=== PATIENT | female | born 2000 | race Caucasian/White ===

== ENCOUNTER 2024-09-28 01:16 | Emergency (ER) | payer OTHER, SELFPAY ==
--- NOTE | ~2024-09-28 | XR_ITS ---
CLINICAL HISTORY: t4-t5 pain s p fall 3 views thoracic spine Comparison: None Findings: Normal vertebral body alignment. No acute fractures or dislocation. No significant degenerative change. IMPRESSION: No acute findings. This document has been electronically signed by: Wesley Garza MD on 09/28/2024 04:55:15
[2024-09-28 01:26] VITALS: BP 100/68; PULSE 71; RESP 14; TEMP 36.2; O2SAT 100; BMI 22.1
--- OUTSIDE RECORDS SUMMARY | 2024-09-28 02:49 | XMS_ITS | Encounter Summary ---
Author Organization [facility] Address [phone] [facility] [place] [address] Care Team Providers Care Child Day Care Provider Name Role Phone Shantelle Baca MD Primary Care Provider [phone] Ale Lackey Unavailable [email or web address] Encounter Details Date Type Department Care Team (Late st Contact Info) Description 09/28/2024 12:33 AM EST - 09/28/2024 12:49 AM EST Emergency [facility] [address] [place] [address] Discharge Disposition: Left Without Being Seen Social History Tobacco Use Types Packs/Day Years Used Date Smoking Tobacco: Never Passive Smoke Exposure: Never Smokeless Tobacco: Never Alcohol Use Standard Drinks/Week Comments Never 0 (1 standard drink = 0.6 oz pur e alcohol) Education Answer Date Recorded Are you interested in more education? Not on vern e 12/11/2022 Are you concerned about learning? Not on file 12/11/2022 No 12/11/2022 No 12/11/2022 Digital Access Answer Date Recorded No 01/07/2023 No 01/07/2023 Reliable internet access at home? Not on file 01/07/2023 Device with a working camera? Not on file Intimate Partner Violence Answer Date R ecorded Denied Basic Needs Not on file 07/31/2024 In the past 12 months have y ou been in a relationship with a person who hurts, threatens, or tries to control you? No 07/31/2024 Worried food would run out Not on file 07/31 In the past 12 months have y ou been in a relationship with a person who hurts, threatens, or tries to control you? No 07/31/2024 Sex and Gender Information Value Date Recorded Sex Assigned at Female 01/20/2021 3:41 PM EDT Gender Identity Female 01/20/2021 3:41 PM EDT Sexual Orientation Straight 01/20/2021 3: 41 PM EDT documented as of this encounter Medications at Time of Discharge Medication Sig Dispensed Refills Start Date End Date EPIDUO FORTE 0.3-2.5 % GlwP as needed. 12/29/2020 FLUoxetine (PROZAC) 10 MG capsuleIndications:Curr ent moderate episode of major depressive disorder without prior episode Take 1 capsule daily for one week, then increase to 2 caps daily 60 capsule 5 08/01/2024 loratadine (CLARITIN) 10 mg tablet Take 10 mg by mouth as needed. documented as of this encounter Plan of Treatment Upcoming Encounters Date Type Department Care Team (Late st Contact Info) Description 08/22/2025 9:00 AM EST Appointment [address] [place] [address] [place] [address] Shantelle Baca MD [address] [address] [email or web address] documented as of this encounter Goals Goal Patient Goal Type Associated Problems Recent Progress Patient-Stated? Author KL-Zzpyfojj-Qoc ed Cognitive Behavioral Therapy (iCBT) Care Management No Stephanie Davis, SHANNON Note: Pt will complete module 6 of iCBT. documented as of this encounter Visit Diagnoses Not on filedocumented in this encounter Additional Health Concerns Assessment Noted Time PHQ-9 Depression Total Score: 14 025 12:31 PM EST PHQ-2 Depression Total Score: 4 09/19/19 25 12:31 PM EST documented as of this encounter Care Teams Child Day Care Provider Relationship Specialty Start Date End Date Shantelle Baca MD 6 [facility], [facility] [address] [place] [address] [email or web address] PCP - General Internal Medicine 01/20/21 [email or web address] Collaborative Care Automatic Folder Seamer 09/19/24 documented as of this encounter Additional Source Comments The information contained in this document represents components of the legal health record. It is not the complete legal health record.[facility]
--- OUTSIDE RECORDS SUMMARY | 2024-09-28 02:49 | XMS_ITS | Encounter Summary ---
Author Organization [facility] Address [phone] [place] [address] Care Team Providers Care Sulfide Head Operator Name Role Phone Shantelle Baca MD Primary Care Provider Ale Lackey Unavailable [email or web address] Reason for Visit * Reason Onset Date Comments Collaborative Care September 2024 09/19/2024 Encounter Details Date Type Department Care Team (Late st Contact Info) Description 09/19/2024 Patient Outreach [facility] Physicians - Primary Care - [address] [phone] Shantelle Baca MD [address] [place] [address], [facility] [address] [place] [address] [email or web address] Collaborative Care September 2024 Social History Tobacco Use Types Packs/Day Years [...] PM EDT documented as of this encounter Progress Notes * Ale Lackey - 09/19/2024 12:27 PM EST September 19, 2024 Assessment(s) APARNA-7: 14 PHQ-9: 14 C-SSRS Screener Since Last Visit: Moderate 09/19/2024 0.38 Minutes -- Patient Contact 09/19/2024 48.57 Minutes -- Patient Contact 09/19/2024 2.00 Minutes -- Clinical Case Preparation 09/19/2024 10.00 Minutes -- Patient Related Correspondence 09/19/2024 12.00 Minutes -- Community Resources (Research and/or Contact) 09/19/2024 10.00 Minutes -- Registry Management Primary Diagnosis: F42.2 - Mixed obsessional thoughts and acts Patient was contacted for continued behavioral health services to treat presenting diagnosis. Patient scores indicate moderate anxiety, moderate depression, and a moderate C- SSRS. Patient identifies recent suicidal ideation, reporting thoughts that they would be better off , and would choose to overdose, although she shared that she currently doesn't have the desire to harm herself. Collaborative Medical Director/Head Team Physician provided Suicide Risk Assessment using the C-SSRS and provided intervention with iMhir Prado safety plan. Patient was provided with emergency numbers/resources for immediate support if needed. Patient's safety plan was completed, uploaded, and emailed to patient. Patient identifies protective factors of her friends and dreams for her future. Patient identifies risk facto rs: isolation and low motivation. Collaborative Medical Director/Head Team Physician will follow-up with patient on 09/25/24. Patient set a goal of reviewing introductory during last contact. Patient did not report completingthis goal. Patient reports the following symptoms since last contact: anhedonia, low motivation, and suicidal ideation. Medication Management: Collaborative Medical Director/Head Team Physician and patient reviewed - no changes reported. Intervention: Collaborative Medical Director/Head Team Physician utilized Compassion-Focused Therapy, empathy, and activelistening to assist patient in developing self-kindness and mindfulness to reduce stress, anxiety, and depression symptoms with a goal of reducing symptoms by 50% or more in 8-12 weeks. Plan: Patient will impact depression and anxiety by reviewing coping strategies, goal adherence material, and long-term care resources sent by Collaborative Medical Director/Head Team Physician until next scheduled contact on 09/25/24 with Collaborative Medical Director/Head Team Physician. Goal: How was your progress towards your goal since our last meeting? Poor (Fair) Good Excellent Clinician met with the patient via telepractice. Patient is aware that the contact is conducted viainteractive audio and consents to treatment in this way. Patient's identity was confirmed. Clinician verified the patient's physical location during the contact and local emergency contacts. Patient has been included in the caseload review activities and consulted on as needed. Ale Lackey [facility] Behavioral Healthcare Web Development Instructor I * Michelle Bansal MD, MPH - 09/19/2024 12:27 PM EST Psychiatric Consultation - [facility] Health Information Reviewed: medical records, collaborative managed care director notes and systematic case review with collaborative managed care director. Reason for Consultation: depression and anxiety Clinical concerns discussed: second-guessing herself when speaking, unable to speak freely, high anxiety, difficulty completing her thoughts; at risk; would overdose on pills; dreams of future and her friends are protective factor; isolation, low motivation to engage in activities, social anxiety, nervous around people 02/03/2023 3:29 PM 03/16/2023 8:51 AM 07/31/2024 10:10 PM 07/31/2024 10:14 PM 09/05/2024 11:55 AM 09/05/2024 11:56 AM 09/19/2024 12:31 PM Psychosocial Screenings Audit-C 0 2 PHQ-2 0 0 5 3 4 PHQ-9 15 15 14 APARNA-2 2 4 4 5 APARNA-7 10 14 14 Meds: Current Outpatient Medications on File Prior to Visit Medication Sig Dispense Refill Last Dispense EPIDUO FORTE 0.3-2.5 % GlwP as needed. Unknown (patient-reported) FLUoxetine (PROZAC) 10 MG capsule Take 1 capsule daily for one week, then increase to 2 caps daily 60 capsule 5 Unknown (outside pharmacy) loratadine (CLARITIN) 10 mg tablet Take 10 mg by mouth as needed. Unknown (patient-reported) No current facility-administered medications on file prior to visit. Diagnosis: MDD, APARNA Recommendations: Would continue to titrate fluoxetine. Can increase in 10 mg increments monthly (slow titration due to its long half-life) based on response/tolerability to a maximum dose of 80 mg daily. For depression, efficacy plateaus at around 20-30 mg of fluoxetine, but higher doses may be needed for full control of anxiety symptoms. The above treatment considerations and suggestions are based on consultations with the patient's collaborative care treatment team and a review of information available in the patient's medical record. I have not personally examined the patient. Referring provider was made aware of clinical recommendations. All recommendations should be implemented with consideration of the patient???s relevant prior history and current clinical status. Michelle Bansal MD, MPH * Ale Lackey - 09/19/2024 12:27 PM EST September 24, 2024 09/24/2024 14.00 Minutes -- Collaborative PC Review Primary Diagnosis: F42.2 - Mixed obsessional thoughts and acts Patient's clinical history, symptoms, and medications reviewed for psychiatric consultation with Michelle Bansal MD. Recommendations added to electronic health record. Ale Lackey LMSW Behavioral Healthcare Web Development Instructor I 09/24/2024 10.00 Minutes -- Clinical Case Preparation 09/24/2024 0.30 Minutes -- Registry Management Primary Diagnosis: F42.2 - Mixed obsessional thoughts and acts The Collaborative Medical Director/Head Team Physician prepared for the Psychiatric Ribbon Hanking Machine Operator Review and met with the psychiatric erp implementation consultant regarding the patient. Ale Lackey LMSW Behavioral [facility] Web Development Instructor I 09/24/2024 1.00 Minutes -- Clinical Case Preparation 09/24/2024 8.00 Minutes -- Patient Related Correspondence 09/24/2024 0.30 Minutes -- Registry Management Primary Diagnosis: F42.2 - Mixed obsessional thoughts and acts As advised by the Psychiatric Ribbon Hanking Machine Operator, the Collaborative Medical Director/Head Team Physician wrote Primary Care Physician regarding the patient's treatment plan moving forward. Ale Lackey [facility] Behavioral Healthcare Web Development Instructor I * Ale Lackey - 09/19/2024 12:27 PM EST September 25, 2024 Assessment(s) C-SSRS Screener Since Last Visit: Negative 09/25/2024 4.00 Minutes -- Clinical Case Preparation 09/25/2024 4.00 Minutes -- PCP Communication 09/25/2024 1.00 Minutes -- Registry Management Primary Diagnosis: F42.2 - Mixed obsessional thoughts and acts Collaborative Medical Director/Head Team Physician replied to the Primary Care Physician's request to assist the patient in finding a Psychopharmacologist. Ale Lackey [facility] Behavioral Healthcare Web Development Instructor I 09/25/2024 0.78 Minutes -- Patient Contact 09/25/2024 2.00 Minutes -- Clinical Case Preparation 09/25/2024 25.02 Minutes -- Video Visit 09/25/2024 5.00 Minutes -- Registry Management Primary Diagnosis: F42.2 - Mixed obsessional thoughts and acts Patient was contacted for continued behavioral health services to treat presenting diagnosis. Patient scores indicate moderate anxiety, moderate depression, and a Negative C- SSRS score. Patientdoes not report suicidal ideation and there is no indication of harm to self or others at this time. Patient set a goal of reviewing coping strategies, goal adherence material, and long-term care resources during last contact. Patient reported completing this goal. Patient reports the following symptoms since last contact: no negative symptoms reported. Medication Management: Collaborative Medical Director/Head Team Physician and patient reviewed - no changes reported. Intervention: Collaborative Medical Director/Head Team Physician utilized Compassion-Focused Therapy, empathy, and activelistening to assist patient in developing self-kindness and mindfulness to reduce stress, anxiety, and depression symptoms with a goal of reducing symptoms by 50% or more in 8-12 weeks. Patient is open to reviewing long-term care resources sent by Collaborative Medical Director/Head Team Physician. Plan: Patient will impact depression and anxiety by reviewing long-term care resources sent by Collaborative Medical Director/Head Team Physician until next scheduled contact on 10/10/24 with Collaborative Medical Director/Head Team Physician. Goal: How was your progress towards your goal since our last meeting? Poor Fair Good (Excellent) Clinician met with the patient via telepractice. Patient is aware that the contact is conducted viainteractive audio and consents to treatment in this way. Patient's identity was confirmed. Clinician verified the patient's physical location during the contact and local emergency contacts. Patient has been included in the caseload review activities and consulted on as needed. Ale Lackey [facility] Behavioral Healthcare Web Development Instructor I documented in this encounter Plan of Treatment Upcoming Encounters Date Type Department Care Team (Late st Contact Info) Description 08/22/2025 9:00 AM EST Appointment [address] [address] Shantelle Baca MD [address] [place] [address] [email or web address] documented as of this encounter Goals Goal Patient Goal Type Associated Problems Recent Progress Patient-Stated? Author QL-Ooaisxti-Vlt ed Cognitive Behavioral Therapy (iCBT) Care Management No Stephanie Davis SOIL ANALYST Note: Pt will complete module 6 of iCBT. documented as of this encounter Visit Diagnoses Not on filedocumented in this encounter Additional Health Concerns Assessment Noted Time PHQ-9 Depression Total Score: 14 025 12:31 PM EST PHQ-2 Depression Total Score: 4 09/19/19 25 12:31 PM EST documented as of this encounter Care Teams Sulfide Head Operator Relationship Specialty Start Date End Date Shantelle Baca MD 6 [facility] [place], [address] [address] [email or web address] PCP - General Internal Medicine 01/20/21 Ale Collaborative Care Weed Sprayer 09/19/24 documented as of this encounter Additional Source Comments The information contained in this document represents components of the legal health record. It is not the complete legal health record.[facility]
--- OUTSIDE RECORDS SUMMARY | 2024-09-28 02:49 | XMS_ITS | Clinical Summary ---
Author Organization [facility] Address [address] [place] [address] Phone Care Team Providers Care Machine Heddle Cleaner Name Role Phone Mary Miller MD Primary Care Prov ider Allergies Active Allergy Reactions Criticality Noted Date Comments Cat Dander 12/23/2013 Dog Epithelium 12/23/2013 Medications No known medications Active Problems Problem Noted Date Diagnosed Date Anxiety 12/12/2016 Expressive language delay 12/12/2016 Iron deficiency anemia 12/12/2016 Immunizations Immunization Administration Dates Next Due DTaP 5 12/19/2005, 2,07/01/2001,04/18,02/28/2001 H1N1 05/28/2009 HPV Vaccine 9 Valent 08/02/2019,02/20/2019 Hep A, ped/adol 02/12/2014,02/20/2006 Hep B, ped/adol 10/30/2001,01/24/2001,2000 Hib (PRP-T) 03/18/2002, 1,04/18/2001,02/28 IPV 12/19/2005, 1,04/18/2001,02/28 Influenza, injectable, MDCK, preservative free, quadrivalent 08/26/2017 Influenza, injectable, quadr ivalent, preservative free 08/24/2012,07/13/2011 Influenza, injectable, trivalent 010,04/23/2009,06/05/2008,06/07,06/28/2006,06/02/2005,06/10/2004 MMR 12/19/2005,03/18/2002 Meningococcal B Bexsero 03/25/2019,02/20/2019 Meningococcal Conj (Menactra) MCV4P 02/12/2018,0 02/11/2013 Pneumococcal Conjugate 06/25/2002,2000,04/18/2001,02/28 Tdap 02/11/2013 Varicella 02/03/2010,12/17/2001 Family History Medical History Relation Name Comments Congenital heart disease Brother Kodak Hyp oplastic Left with Double-Outlet Right Ventricle Relation Name Status Comments Brother Kodak Alive Social History Tobacco Use Types Packs/Day Years Used Date Smoking Tobacco: Never Smokeless Tobacco: Never Tobacco Cessation:Counseling Given: Yes Comments:never smoker Alcohol Use Standard Drinks/Week Comments No 0 (1 standard drink = 0.6 oz pur e alcohol) Hunger/Food Answer Date Recorded No 05/09/2020 Stable Housing Answer Date Recorded No 05/09/2020 Transportation Concerns Answer Date Rec orded No 05/09/2020 Hazards in Home Answer Date Recorded No 06/27/2020 Financing Utilities Answer Date Recorde d No 06/27/2020 Safety at Home Answer Date Recorded No 06/27/2020 Outside Support Answer Date Recorded No 06/27/2020 Understanding Health Concerns Answer Da te Recorded No 06/27/2020 Financing Health Concerns Answer Date R ecorded No 06/27/2020 Missing School or Work Answer Date Rishabh rded No 06/27/2020 Comments Unknown Sex and Gender Information Value Date Recorded Sex Assigned at Not on file Legal Sex Female 10:17 PM EST Gender Identity Not on file Sexual Orientation Not on file Last Filed Vital Signs Vital Sign Reading Time Taken Comments Blood Pressure 116/64 02/20/2019 3:54 PM EDT Pulse - - Temperature 37 ??C (98.6 ??F) 01/09/2019 1:25 PM EDT Respiratory Rate - - Oxygen Saturation 98% 04/30/2012 12:00 AM EDT Inhaled Oxygen Concentration - - Weight 64.4 kg (142 lb) 02/20/2019 3:54 PM EDT Height 158.8 cm (5' 2.5 ) 02/20/2019 3:54 PM EDT Body Mass Index 25.56 02/20/2019 3:54 PM EDT Plan of Treatment Health Maintenance Due Date Last Done Comments DTaP,Tdap,and Td Vaccines (7 - Td or Tdap) 02/11/2023 02/11/2013, 12/19/2005, 06/25/2002, Additional history exists Influenza Vaccines (#1) 2024 08/26/19 18, 08/24/2012, 07/13/2011, Additional history exists COVID-19 Vaccine (2023-2 5 season) 2024 01/20/2021, 12/23/2020 Hepatitis B Vaccines Completed 10/30/2001, 01/24/2001, 2000 HIB Vaccines Completed 03/18/2002, 06/14, 04/18/2001, Additional history exists Pneumococcal Vaccine Completed 06/25/2002, 07/01/2001, 04/18/2001, Additional history exists IPV Vaccines Completed 12/19/2005, 06/14, 04/18/2001, Additional history exists MMR Vaccines Completed 12/19/2005, 03/18/2002 Varicella Vaccines Completed 02/03/2010, 12/17/2001 Hepatitis A Vaccines Completed 02/12/2014, 02/21/20 06 Meningococcal Vaccine Completed 02/12/2018, 013 Men B Vaccine Completed 03/25/2019, 02/20/2019 HPV Vaccines Completed 02/08/2021, 07/15, 02/20/[address] [place], [place] [address] Care Teams Machine Heddle Cleaner Relationship Specialty Start Date End Date Mary Miller MD [facility] [place] [address] [facility] - General 10/04/16
--- OUTSIDE RECORDS SUMMARY | 2024-09-28 02:50 | XMS_ITS | Encounter Summary ---
Author Organization [facility] Address [address] [place] [address] Phone Care Team Providers Care Personal Care Aide Name Role Phone Mary Miller MD Primary Care Prov ider Encounter Details Date Type Department Care Team (Late st Contact Info) Description 03/22/2017 Conversion Encounter [facility] [address] [place] [address] Mary Miller MD [address] [place] [address] Social History Tobacco Use Types Packs/Day Years Used Date Smoking Tobacco: Never Comments:never smoker Comments Unknown Sex and Gender Information Value Date Recorded Sex Assigned at Not on file Legal Sex Female 10:17 PM EST Gender Identity Not on file Sexual Orientation Not on file documented as of this encounter Plan of Treatment Not on file documented as of this encounter Visit Diagnoses Not on filedocumented in this encounter Care Teams Personal Care Aide Relationship Specialty Start Date End Date Mary Miller MD [address] [place] [address] PCP - General 10/04/16 documented as of this encounter
--- OUTSIDE RECORDS SUMMARY | 2024-09-28 02:50 | XMS_ITS | Encounter Summary ---
Author Organization [facility] Address [phone] [facility] [place] [address] Care Team Providers Care Spar Machine Operator Helper Name Role Phone Shantelle Baca MD Primary Care Provider [phone] Ale Lackey Unavailable [email or web address] Encounter Details Date Type Department Care Team (Late st Contact Info) Description 08/01/2024 Procedure Pass [address] [address] Social History Tobacco Use Types Packs/Day Years [...] PM EDT documented as of this encounter Plan of Treatment Upcoming Encounters Date Type Department Care Team (Late st Contact Info) Description 08/22/2025 9:00 AM EST Appointment [facility] 6 [facility] [address] [place] [address] Shantelle Baca MD [address] [address] [email or web address] documented as of this encounter Goals Goal Patient Goal Type Associated Problems Recent Progress Patient-Stated? Author VY-Omtdquyu-Mel ed Cognitive Behavioral Therapy (iCBT) Care Management No Stephanie Davis, SHANNON Note: Pt will complete module 6 of iCBT. documented as of this encounter Visit Diagnoses Not on filedocumented in this encounter Additional Health Concerns Assessment Noted Time PHQ-9 Depression Total Score: 15 024 10:14 PM EST PHQ-2 Depression Total Score: 5 07/31/20 24 10:14 PM EST documented as of this encounter Care Teams Spar Machine Operator Helper Relationship Specialty Start Date End Date Shantelle Baca MD [address] [facility], [address] [address] [email or web address] PCP - General Internal Medicine 01/20/21 Ale Collaborative Care BH Media Relations Specialist 09/19/24 documented as of this encounter Additional Source Comments The information contained in this document represents components of the legal health record. It is not the complete legal health record.[facility]
--- OUTSIDE RECORDS SUMMARY | 2024-09-28 02:50 | XMS_ITS | Encounter Summary ---
Author Organization [facility] Address [phone] [place] [id number] Care Team Providers Care Crabbing Machine Operator Name Role Phone Shantelle Baca MD Primary Care Provider Reason for Visit * Reason Onset Date Comments Collaborative Care August 2024 09/05/2024 Encounter Details Date Type Department Care Team (Late st Contact Info) Description 09/05/2024 Patient Outreach [facility] - Primary Care - [address] [phone] Shantelle Baca MD 6 [facility], [facility] [address] [place], [place] [id number] [email or web address] Collaborative Care August 2024 Social History Tobacco Use Types Packs/Day [...] encounter Progress Notes * Ale Lackey - 09/05/2024 11:55 AM EST September 05, 2024 Assessment(s) APARNA-7: 14 PHQ-9: 15 C-SSRS Screener Recent: Negative 09/05/2024 0.50 Minutes -- Patient Contact 09/05/2024 54.35 Minutes -- Patient Contact 09/05/2024 15.00 Minutes -- Registry Management Primary Diagnosis: F42.2 - Mixed obsessional thoughts and acts Initial Assessment - Patient score on survey indicate moderate depression, moderate anxiety, and a Negative C-SSRS. - Patient reports the following symptoms: anhedonia, difficulty completing daily self-care activities, and challenges related to executive functioning, including planning, organizing, and task initiation. The patient reports experiencing nervous tics and compulsions when under stress and expresses concern about a possible OCD diagnosis. However, a comprehensive clinical evaluation is recommended to confirm the diagnosis and explore treatment options. 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 Safety Concerns: - Is the patient at risk for hurting themselves or others? No. - Does the patient feel safe in their current home environment? Yes. - Does the patient feel safe with their current relationships? Yes - History of Suicide Attempts/Self Harm: No. - History of Trauma: No. Behavioral Health Concerns: - Assessment of anupam/hypomania: no. - Is the patient seeing or hearing things that other people wouldn't see or hear? no. - Current Medications: Fluoxetine (recently started it and can???t confirm how it makes her feel). - Psychotropic Medication History: no. - Substance Use (Current and Historical): socially in the past, but not currently. - Behavioral Health Treatment History: yes, therapist. - Support System/Coping Strategies: friends and mom; journaling and writing helps and cleaning. Plan: - Provisional Diagnosis: F42.2 - Mixed obsessional thoughts and acts - Patient Goal for Treatment: to better function without feeling overwhelmed. - Next Contact Date: 09/19/2024 ( Collaborative Health Commissioner also sent patient resources via email). Patient is aware that all contact is conducted via telemedicine and consents to treatment in this way. Patient's physical location and identity was confirmed during contact. Patient was informed of rights and limitations to confidentiality of information disclosed. Patient has been included in the c aseload review activities and consulted on as needed. Ale Lackey LMSW [facility] Brush Fabrication Supervisor I 09/05/2024 2.00 Minutes -- Clinical Case Preparation 09/05/2024 4.00 Minutes -- Patient Related Correspondence 09/05/2024 5.00 Minutes -- Community Resources (Research and/or Contact) documented in this encounter Plan of Treatment Upcoming Encounters Date Type Department Care Team (Late st Contact Info) Description 08/22/2025 9:00 AM EST Appointment [address] [place] [address] [place] [address] Shantelle Baca MD 6 [facility], [address] [place] [address] [email or web address] documented as of this encounter Goals Goal Patient Goal Type Associated Problems Recent Progress Patient-Stated? Author [id number] ed Cognitive Behavioral Therapy (iCBT) Care Management No Stephanie Davis, PARACHUTE TAPER Note: Pt will complete module 6 of iCBT. documented as of this encounter Visit Diagnoses Not on filedocumented in this encounter Additional Health Concerns Assessment Noted Time PHQ-9 Depression Total Score: 15 025 11:56 AM EST PHQ-2 Depression Total Score: 3 09/05/19 25 11:56 AM EST documented as of this encounter Care Teams Crabbing Machine Operator Relationship Specialty Start Date End Date Shantelle Baca MD 6 [facility], [address] [place] [address] [email or web address] PCP - General Internal Medicine 01/20/21 documented as of this encounter Additional Source Comments The information contained in this document represents components of the legal health record. It is not the complete legal health record.[facility]
--- OUTSIDE RECORDS SUMMARY | 2024-09-28 02:50 | XMS_ITS | Encounter Summary ---
Author Organization [facility] Address [phone] [facility] [place] [address] Care Team Providers Care Match Up Worker Name Role Phone Shantelle Baca MD Primary Care Provider [phone] [email or web address] Reason for Visit * Reason Onset Date Comments Collaborative Care 08/01/2024 Encounter Details Date Type Department Care Team (Late st Contact Info) Description 08/01/2024 Telephone [facility] Primary Care [address] [place] [id number] [email or web address] Collaborative Care Social History Tobacco Use Types Packs/Day Years [...] as of this encounter Progress Notes * Sarah Gonzalez - 08/01/2024 2:36 PM EST August 01, 2024 Outreach # 1 Call placed to patient to follow up on referral. Patient Connection Specialist called the Patient twice but the connection was bad and was disconnected. Continued outreach attempts will be made. Sarah Gonzalez Patient Connection Specialist Aug 01, 2024 Outreach attempt #2 Patient Connection Specialist sent message to patient via SMS on the number listed as mobile to follow up on a referral for collaborative care services. The patient was provided with the Patient Connection Line, , and was asked to return call in order to enroll in care. Patient Connection Specialist will continue with outreach attempts and remain available as needed. Sarah Gonzalez Patient Connection Specialist 08/01/2024 Outreach attempt #3 Patient Connection Specialist contacted patient and [place]. Patient requested to be contacted tomorrow around 3:30 PM Maria Alejandra Ross Patient Connection Specialist 08/02/2024 03:30 PM: Outreach attempt #4 Patient Connection Specialist successfully connected with patient to follow up on referral and explain services to the patient. Explained to patient the billing process for [employer] services. Patient did want the billing codes. Patient's availability and language preference was obtained. Patient Connection is actively working to connect patient with the appropriate Collaborative Health Care Sanitary Technician. Patient stated understanding. Sarah Gonzalez Patient Connection Specialist August 19, 2024 Outreach attempt #5 Outreach attempt made to patient to follow up on behavioral health services via phone and voicemailwas left requesting a return call. Sarah Gonzalez Patient Connection Specialist documented in this encounter Plan of Treatment Upcoming Encounters Date Type Department Care Team (Late st Contact Info) Description 08/22/2025 9:00 AM EST Appointment [facility] 6 [facility] [address] [place] [address] Shantelle Baca MD 6 [facility], [address] [address] [email or web address] documented as of this encounter Goals Goal Patient Goal Type Associated Problems Recent Progress Patient-Stated? Author QJ-Fdojugki-Xbb ed Cognitive Behavioral Therapy (iCBT) Care Management [...] documented as of this encounter Care Teams Match Up Worker Relationship Specialty Start Date End Date Shantelle Baca MD 6 [facility], [address] [address] [email or web address] PCP - General Internal Medicine 01/20/21 Ale Collaborative Care BH Retail Planning Manager 09/19/24 documented as of this encounter Additional Source Comments The information contained in this document represents components of the legal health record. It is not the complete legal health record.[facility]
--- OUTSIDE RECORDS SUMMARY | 2024-09-28 02:51 | XMS_ITS | Clinical Summary ---
Author Organization [facility] Address [address] [facility] [place] [address] Phone Care Team Providers Care General Freight Agent Name Role Phone Required, No Pcp/Pcp Not Primary Care Provider U navailable Allergies Active Allergy Reactions Criticality Noted Date Comments Cat Hair Extract 12/23/2013 Dog Epithelium 12/23/2013 Medications cetirizine (ZyrTEC) 10 MG tablet Take 10 mg by mouth. 10/18/2011 Active Social History Tobacco Use Types Packs/Day Years Used Date Smoking Tobacco: Never Smokeless Tobacco: Never Alcohol Use Standard Drinks/Week Comments No 0 (1 standard drink = 0.6 oz pur e alcohol) Comments Unknown Sex and Gender Information Value Date Recorded Sex Assigned at Not on file Legal Sex Female 9:28 AM EDT Gender Identity Not on file Sexual Orientation Not on file Last Filed Vital Signs Vital Sign Reading Time Taken Comments Blood Pressure 116/84 01/07/2019 2:10 AM EDT Pulse 67 01/07/2019 2:10 AM EDT Temperature 37 ??C (98.6 ??F) 01/07/2019 2:10 AM EDT Respiratory Rate 16 01/07/2019 2:10 AM EDT Oxygen Saturation 100% 01/07/2019 2:10 AM EDT Inhaled Oxygen Concentration - - Weight 64.9 kg (143 lb 1.3 oz) 01/07/2019 12:24 AM EDT Height 157.5 cm (5' 2 ) 01/07/2019 12:24 AM EDT Body Mass Index 26.17 01/07/2019 12:24 AM EDT Plan of Treatment Health Maintenance Due Date Last Done Comments [facility] Topic HIV Screening 2000 [facility] Topic Depression Screening 2012 [facility] Topic Chlamydia Screening 2016 [facility] Topic HPV Vaccines (3 - 3-dose series) 12/02/2019 08/02/2019, 02/20/2019 [facility] Topic Tdap Vaccine (1 - Tdap) 12/16/2019 [facility] Topic Cervical Cancer Screening 2021 [facility] Topic Lipid Profile 5 years 2022 07/08/2019, 12/10/2016, 12/10/2016 [facility] Topic Influenza (Flu) Seasonal (#1) 2024 05/21/2010, 04/23/2009, 06/05/2008, Additional history exists [facility] Topic HIB Vaccines Completed 2001, 07/01/2001, 04/18/2001, Additional history exists [facility] Topic Meningococcal G roup B Conjugate Vaccine Completed 03/25/2019, 02/20/2019 Procedures Procedure Name Priority Date/Time Associated Diagnosis Comments LIPID PANEL Routine 07/08/2019 10:36 AM EST Screening for iron deficiency anemia from Last 3 Months or Most Recently Relevant to Health Maintenance Results * (ABNORMAL) Lipid panel (07/08/2019 10:36 AM EST) Cholesterol 134 120 - 200 mg/dL 07/08/2019 12:10 PM [facility] HDL 64 45 - 65 mg/dL 07/08/2019 12:10 PM [facility] LDL Calculated 59(L) 60 - 130 mg/dL 07/08/2019 12:10 PM [facility] Triglycerides 57 35 - 150 mg/dL 07/08/2019 12:10 PM [facility] Cholesterol Risk Ratio 2.09 mg/dL 07/08/2019 12:10 PM [facility] Comment:Less than the averag e risk of developing coronary heart disease. Blood Capillary blood specimen / Unknown Venipuncture / Unknown 07/08/2019 10:36 AM EST 07/08/2019 11:38 AM EST us Mary BarretoElkeThi LAB BLOOD ORDERABLES Final Result [facility] [address] [place] [address], [place] [phone] from Last 3 Months or Most Recently Relevant to Health Maintenance Insurance [employer] PPO Care Teams General Freight Agent Relationship Specialty Start Date End Date Required, No Pcp/Pcp Not [address] [place] [address] PCP - General Rf Test Engineer 07/22/21
--- OUTSIDE RECORDS SUMMARY | 2024-09-28 02:51 | XMS_ITS | Clinical Summary ---
Author Organization [facility] Address [address] [facility] [address] Care Team Providers Care Microwave Engineer Name Role Phone Mary Miller MD Primary Care Prov ider Allergies No known active allergies Medications Vyvanse 10 mg cap TAKE 1 CAPSULE BY MOUTH EVERY DAY 10/31/2023 Active Epiduo Forte 0.3-2.5 % glwp daily as needed 12/29/2020 Active Immunizations Name Administration Dates Next Due Flucelvax Trivalent PFS IM; Without Preservative (18+ mos) 08/26/2017 Social History Tobacco Use Types Packs/Day Years Used Date Smoking Tobacco: Never Smokeless Tobacco: Never Comments No Sex and Gender Information Value Date Recorded Sex Assigned at Not on file Legal Sex Female 4:32 PM EDT Gender Identity Not on file Sexual Orientation Not on file Last Filed Vital Signs Vital Sign Reading Time Taken Comments Blood Pressure 110/70 01/22/2024 6:50 PM EDT Pulse 68 01/22/2024 6:50 PM EDT Temperature 36.5 ??C (97.7 ??F) 01/22/2024 6:50 PM ED T Respiratory Rate 14 01/22/2024 6:50 PM EDT Oxygen Saturation 100% 01/22/2024 6:50 PM EDT Inhaled Oxygen Concentration - - Weight 61.7 kg (136 lb) 03/16/2018 2:51 PM EDT Height - - Body Mass Index - - Plan of Treatment Health Maintenance Due Date Last Done Comments Depression: Screening Annually using PHQ-2/9 in Adults 18 yrs or above (or HM Modifier)([facility]) 2018 SDOH Screening Reminder: Annually for all adults ([facility]) 2018 Lipid Screening: Once for Women aged 20 to 45 yrs ([facility]) 2020 Cervical Cancer Screenin-65 yrs of age (or Modifier) 2021 Cervical Cancer Screening: Pap every 3 yrs pts age 21-65 2021 Cervical Cancer: Pap Screening with Modifier timing ([facility]) 2021 Cervical Cancer: hrHPV alone or with cotesting Pap for Pts 30-65yrs screening every 5yrs ([facility]) 2021 Flu Vaccination: Yearly for ages 18mos through 64 years (or Modifier)([facility]) 03/14/2024 08/17/2021, 08/26/2017, 08/24/2012, Additional history exists COVID-19 Vaccine Screening: Initial Series and Booster Status ([facility]) (3 2023- season) 2024 01/20/2021, 12/23/2020 DTaP/Tdap/Td Vaccines ([facility]) (8 - Td or Tdap) 03/16/2033 03/16/2023, 02/11/2013, 12/19/2005, Additional history exists Zoster/Shingles Vaccine Series Screening: Adults aged 18+ yrs (or HM Modifiers)([facility]) (1 of 2) 2050 02/03/2010, 12/17/2001 Pneumococcal Vaccination Screening: Pts 0-19 & 19-64 yrs of age ([facility]) Aged Out 06/25/2002, 07/01/2001, 04/18/2001, Additional history exists No longer eligible based on patient's age to complete this topic Hepatitis C Virus Infection in Adolescents and Adults: Screening (or Modifier) ([facility]) Completed 02/08/2021 Medical Devices Not on file Insurance [employer] Care Teams Microwave Engineer Relationship Specialty Start Date End Date Mary Miller MD [facility] [address] [place] [phone] PCP - General Pediatrics 03/22/17
--- NOTE | 2024-09-28 04:13 | ED_ITS ---
HPI - Back Pain/Injury General Chief Complaint: Back Pain/Injury Stated Complaint: back, fell down stairs tonight Time Seen by Provider: 09/28/24 03:57 Source: patient Mode of arrival: ambulatory History of Present Illness ED Provider: HPI Narrative: Patient apparently just prior to arrival slipped 7 steps complaining of low back midthoracic ambulatory in steady gait no loss of consciousness no other injuries patient is feeling much better now Related Data Allergies Allergy/AdvReac Type Severity Reaction Status Date / Time No Known Allergies Allergy Verified 09/28/24 01:29 Review of Systems Review of Systems: Yes all other systems are reviewed and are negative Physical Exam Vital Signs: Vital Signs: Last Vital Signs Temp 97.8 F 09/28/24 05:31 Pulse 69 09/28/24 05:31 Resp 14 09/28/24 05:31 BP 111/66 09/28/24 05:31 Pulse Ox 99 09/28/24 05:31 O2 Del Method Room Air 09/28/24 05:31 BMI result Body Mass Index 22.1 Appearance: Alert. Oriented X3. No acute distress. Eyes: PERRLA, No Nystagmus ENT: Pharynx normal. Oral Mucosa moist Neck: Normal inspection. Neck supple. CVS: Normal heart rate and rhythm. Pulses normal. Respiratory: No respiratory distress. Equal air entry bilateral, no wheezing/rales/rhonchi Abdomen: Soft and nontender. Bowel sounds are present, no mass palpable, no CVA tenderness Skin: Skin warm and dry. Normal skin color. Normal skin turgor. Extremities: No lower extremity edema. No calf tenderness back: Mild tenderness T4-T5 , tenderness in right gluteal area good range of movement Neuro: Oriented X 3. No motor deficit. No sensory deficit.No cerebellar signs , cranial nerves II-XII intact Medications Administered Discontinued Medications Generic Name Dose Route Start Last Admin Trade Name Freq PRN Reason Stop Dose Admin Ibuprofen 600 mg 09/28/24 04:17 09/28/24 05:31 Ibuprofen 600 Mg Tablet PO 09/28/24 04:18 600 mg ONCE ONE Administration Medical Decision Making Medical Decision Making [facility] Narrative: Patient is status post mechanical fall x-ray negative for any bony injury likely musculoskeletal discharge patient home on patient ambulatory in steady gait Radiology Impression Discussion of test interpretation with radiology: I have reviewed the radiologist's reading. Radiologist Impression: No acute finding Discharge Plan Discharge Clinical Impression: Thoracic back pain, Lower back pain Patient Disposition: Home, Self-Care Instructions: Acute Low Back Pain (ED), Thoracic Pain (ED) Additional Instructions: X-ray negative for fracture Tylenol/Motrin for pain Interventions: ED Discharge Assessment Last Done: 09/28/24 05:31 Discharge Date/Time: 09/28/24 05:31 Print Language: Maltese
[2024-09-28 05:21] VITALS: BP 111/66; PULSE 69; RESP 14; TEMP 36.6; O2SAT 99
[2024-09-28 05:31] VITALS: BP 111/66; PULSE 69; RESP 14; TEMP 36.6; O2SAT 99
[2024-09-28] MEDS: Ibuprofen 600 MG TABLET PO (05:31)
== END 2024-09-28 05:31 | disposition home or self-care (01) ==
PROVIDERS: Emergency Provider Internal Medicine
DX: M54.6 Pain in thoracic spine (principal); M54.50 Low back pain, unspecified
CPT/HCPCS: 72070; 99283

== ENCOUNTER → 2024-09-28 04:17 | Outpatient (BNV) | payer OTHER, SELFPAY | PROVIDERS: Emergency Provider Internal Medicine; Visit Provider Specialist | DX: M54.6 Pain in thoracic spine (principal); W19.XXXA Unspecified fall, initial encounter | CPT/HCPCS: 72070 ==